=== PATIENT | female | born 1985 | race Caucasian/White ===

== ENCOUNTER → 2020-04-04 15:34 | Outpatient (CLI) | payer OTHER, SELFPAY ==
[2020-04-06 17:17] LABS: COVID19 Sendout Not Detected (Not Detect)
== END ==
PROVIDERS: PCP Family Medicine; Visit Provider Nurse Practitioner
DX: Z11.59 Encounter for screening for other viral diseases (principal)
CPT/HCPCS: 87635

== ENCOUNTER 2020-04-07 09:32 | Outpatient (CLI) | payer OTHER, SELFPAY ==
[2020-04-07] VITALS (11 sets, daily range): BP systolic 95–112; BP diastolic 61–75; PULSE 61–75; RESP 12–18; TEMP 36.2; O2SAT 98–100
--- NOTE | 2020-04-07 09:35 | DI.RAD.S_ITS ---
PROCEDURE: PAIN C/T INTERLAMINAR INJECT INDICATIONS: SPINAL STENOSIS COMPARISON: None. FINDINGS: Fluoroscopic spot filming was performed to verify placement of spinal needles at the C5-6 level(s), as labeled on the films. Appropriate location(s) of the needle tip(s) was confirmed by injection of iodinated contrast. IMPRESSION: Successful needle tip localization at the C5-6 interlaminar level for epidural steroid injection. Dictated by: Jose Handley M.D. on 04/07/2020 at 11:43 Approved by: Jose Handley M.D. on 04/07/2020 at 11:44
[2020-04-07] MEDS: fentaNYL 100 MCG/2 ML INJ 50 MCG IV (10:36)
[2020-04-07] MEDS: IOPAMIDOL 15 ML VIAL 3 ML INJ (10:40)
[2020-04-07] MEDS: DEXAMETHASONE 10 MG/ML VIAL 20 MG INJ (10:40)
[2020-04-07] MEDS: MIDAZOLAM 5 MG/5 ML VIAL IV (10:45)
--- NOTE | 2020-04-07 10:58 | P.PCN_ITS ---
Date/Time/Diagnoses Date of procedure: 04/07/20 Time of procedure: 10:58 Pre-procedure diagnosis: 1. CERVICAL STENOSIS, 2. CERVICAL HNP WITH UPPER EXTREMITY RADICULAR FEATURES Post-procedure diagnosis: same Procedure Notes Procedure: 1. FLUORSCOPICALLY GUIDED CONTRAST CONTROLLED INTERLAMINAR EPIDURAL STEROID INJECTION - C5/6 TL BRO Indications: Susan is referred by Dr. Herrera for treatment of Cervical HNP with Upper Extremity Paresthesias. Physician: Luis Ortiz Total Fluoroscopy time (seconds): 5 Total sedation minutes: 18 Complications: none Procedure in detail & Post-procedure care: FINDINGS Cervical Stenosis due to disc deterioration and nerve root irritation and nerve root irritation DESCRIPTION OF PROCEDURE Fluoroscopically guided, contrast-controlled C5/6 translaminar epidural steroid injection with conscious sedation. Following review of allergy and review of potential side effects and complications, including, but not necessarily limited to, infection, allergic reaction, local tissue breakdown, temporary as well as permanent nerve injury, stroke, paralysis, and possible , the patient indicated that patient understood and agreed to proceed. An informed consent document was signed by the patient, witnessed by a nurse, and placed in the patient's chart. Additionally, other treatment options including modalities, medications, and physical therapy were reviewed with the patient. After review of previous anaesthesic history and IV conscious sedation the patient was deemed safe to proceed with today?s procedure with IV conscious sedation as ASA class II designation. Safety time-out was performed to confirm patient ID, procedure to be performed and site of procedure. IV sedation was accomplished with a combination of 4mg of Versed and 50mcg of Fentanyl administered by the RN after DO order, titrated to patient comfort during the course of the procedure while the patient remained responsive to all verbal commands. In the prone position, following sterile prep and drape of the cervical region, the C5/6 translaminar space was identified fluoroscopically. The skin was anesthetized via a 25-gauge 1.5-inch needle with 1% lidocaine solution. At this point, a 25-gauge, 2.5-inch short bevel spinal needle was atraumatically introduced and advanced under fluoroscopic guidance into epidural space at the C5/6 translaminar space. Depth was confirmed on lateral view. Radiological data, including multiple fluoroscopic views of the cervical spine, reveal a spinal needle at the C5/6 translaminar space. Lateral views then show placement of the needle in the epidural space. Subsequent views show contrast material flowing superiorly and inferiorly in the epidural space. DSA fluoroscopy with live contrast injection, once again, confirmed no vascular or intrathecal uptake. At this point, using loss of resistance technique with saline and air, the epidural space was entered. Following negative aspiration, injection of chavez roximately 1.5cc of Isovue-[id number] with live fluoroscopy in the AP view confirmed epidural flow in the epidural space without vascular or intrathecal uptake observed. Subsequently, a test dose of 1 cc of 1% lidocaine solution was injected and patient was observed for two minutes without signs or symptoms of complications, including abdominal pain, shortness of breath, bilateral upper or lower extremity weakness, nausea and vomiting, prior to steroid injection. At this point, 2cc or 20mg of dexamethasone was then injected without incident. The patient tolerated the procedure well without signs or symptoms of complications prior to being transferred to the recovery area for further monitoring, The patient was then transferred to the recovery area where they were observed for an appropriate period of time after the injection. The patient reported a VAS score of 6 prior to the procedure and a post-procedure VAS of 0. POST OP INSTRUCTIONS The patient was provided a Pain Log to continue to record their response to the target-specific procedure prior to follow-up visit with the referring provider. Additionally, specific post-injection care instructions and a contact number to our office were provided if concerns arise regarding possible complications associated with the procedure are suspected.
[2020-04-07] MEDS: BUPIVACAINE 0.25% (PF) VIAL 2 ML INJ (11:13)
== END 2020-04-07 11:39 | disposition home or self-care (01) ==
PROVIDERS: PCP Family Medicine; Referring Provider Physical Medicine & Rehabilitation; Visit Provider Physical Medicine & Rehabilitation
DX: M50.122 Cervical disc disorder at C5-C6 level with radiculopathy (principal); R20.2 Paresthesia of skin
CPT/HCPCS: 62321; 99152; 99153; J1100; J2250; J3010

== ENCOUNTER → 2020-06-06 15:04 | Outpatient (CLI) | payer OTHER, SELFPAY ==
--- NOTE | 2020-06-06 15:05 | DI.RAD.S_ITS ---
PROCEDURE: XR CERVICAL SPINE 4V OR 5V INDICATIONS: update imaging TECHNIQUE: 5 views of the cervical spine acquired. COMPARISON: [facility], CR, XR CERVICAL SPINE WITH FLEXION EXTENSION, 10/07/2018, 16:42. FINDINGS: Bones: No fracture. Straightening of the normal lordotic curvature. Multilevel degenerative endplate sclerosis and spurring. Diffuse facet arthropathy. The disc spaces appear grossly preserved. Mild bilateral bony foraminal narrowing at the C3-C4 level Soft tissues: No prevertebral soft tissue swelling. IMPRESSION: Straightening of the normal lordotic curvature. Mild bony foraminal narrowing at the C3-C4 level bilaterally. Dictated by: Anshul Diallo M.D. on 06/06/2020 at 16:34 Approved by: Anshul Diallo M.D. on 06/06/2020 at 16:36
== END ==
PROVIDERS: PCP Family Medicine; Referring Provider Family Medicine; Visit Provider Physical Medicine & Rehabilitation
DX: M47.812 Spondylosis without myelopathy or radiculopathy, cervical region (principal); M50.222 Other cervical disc displacement at C5-C6 level
CPT/HCPCS: 72050